=== PATIENT | female | born 1990 | race Caucasian/White ===

== ENCOUNTER 2019-12-26 16:08 | Emergency (ER) | payer SELFPAY ==
[~2019-12-26] VITALS: Ht 165.1 cm; Wt 117.7 kg
[~2019-12-26 16:08] MED LIST: ATIVAN1 MG; BENZTROPINE MESY1 MG; DEPAKOTE500 MG; INVEGA1.5 MG
[2019-12-26 16:23] VITALS: Ht 165.1 cm; Wt 117.7 kg
[2019-12-26] MEDS ORDERED: VOLTAREN75 MG PO (18:10)
[2019-12-26 19:03] VITALS: BP 137/84
== END 2019-12-26 19:04 | disposition home or self-care (01) ==
LOC: D.ER 16:08
DX: M79.641 Pain in right hand (principal); S69.91XA Unspecified injury of right wrist, hand and finger(s), initial encounter; J45.909 Unspecified asthma, uncomplicated; Z72.0 Tobacco use; W22.8XXA Striking against or struck by other objects, initial encounter; Y93.9 Activity, unspecified; Y92.9 Unspecified place or not applicable